=== PATIENT | female | born 1985 | race Caucasian/White ===

== ENCOUNTER 2017-03-31 18:25 | Emergency (ER) | payer OTHER ==
[2017-03-31] MEDS: IBUPROFEN 600 MG TAB PO ×2 (19:13→19:42)
== END 2017-03-31 21:53 | disposition home or self-care (01) ==
LOC: FTE 18:25
DX: S89.92XA Unspecified injury of left lower leg, initial encounter (principal); V91.88XA Other injury due to other accident to other unpowered watercraft, initial encounter; Y92.9 Unspecified place or not applicable
CPT/HCPCS: 29505; 73562; 99283-25